=== PATIENT | male | born 1990 | race African-American/Black ===

== ENCOUNTER 2024-09-23 21:06 | Emergency (ER) | payer SELFPAY, OTHER ==
[2024-09-23] MEDS ORDERED: KETOROLAC 30 MG/ML INJ ONE (21:37)
[2024-09-23] MEDS ORDERED: IBUPROFEN 400 MG TAB ONE (21:45)
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
[2024-09-23 22:46] VITALS: TEMP 98.8; O2SAT 99
[2024-09-23 22:47] VITALS: BP 133/85
== END 2024-09-23 22:37 | disposition home or self-care (01) ==
LOC: ER 21:06
DX: S33.5XXA Sprain of ligaments of lumbar spine, initial encounter (principal)
CPT/HCPCS: 72100; 99283